=== PATIENT | female | born 1955 ===

== ENCOUNTER 2021-07-02 10:31 | Observation (INO) | payer MEDICARE, MEDICAID ==
[2021-07-02] VITALS (12 sets, daily range): BP systolic 117–144; BP diastolic 58–70; PULSE 51–63; TEMP 97.4–98.2
[~2021-07-02] VITALS: Ht 157.5 cm; Wt 86.0 kg
[2021-07-02] MEDS ORDERED: ARICEPT10 MG PO (12:09)
[2021-07-02] MEDS ORDERED: PROTONIX 40MG T40 MG PO (12:09)
[2021-07-02] MEDS ORDERED: NORVASC2.5 MG PO (12:11)
--- NOTE | 2021-07-02 12:35 | NUR ---
PATIENT LEFT THE FLOOR FOR GI SURGERY PROCEDURE.
--- NOTE | 2021-07-02 13:25 | NUR ---
PATIENT RETURNED FROM SURGICAL PROCEDURE, EGD. FOUND 2 LARGE ULCERS BUT BLEEDING HAD STOPPED AND NO SURGICAL INTERVENTION WAS NEEDED. RECOMMENDED TO STAY OFF NSAIDS AND REPEAT EGD IN 2 MONTHS. PATIENT RESTING IN ROOM, HOOKED UP TO VITAL MACHINE TO OBTAIN POST OP VITALS. ALERT AND ORIENTED, VS WNL.
[2021-07-02 15:59] LABS: BASO # 0.1 K/mm3 (0.0-0.2); BASO % 0.9 % (0.0-2.0); EOS # 0.3 K/mm3 (0.0-0.7); EOS % 4.2 % (0.0-4.0); GRAN # 3.8 K/mm3 (1.4-6.5); GRAN % 57.8 % (42.2-75.2); LYMPH % 29.4 % (20.0-51.0); MEAN CELL VOLUME 97 fl (80.0-100.0); MEAN CORPUSCULAR HGB CONC 32 g/dl (33.0-37.0); MEAN PLATELET VOLUME 9.5 fl (7.4-10.4); MONO # 0.5 K/mm3 (0.1-0.6); MONO % 7.4 % (1.7-9.3); PLATELET COUNT 224 K/mm3 (130-400); RED BLOOD COUNT 2.69 M/mm3 (4.10-5.30)
[2021-07-02 16:03] LABS: HEMATOCRIT 26.2 % (37.0-47.0); HEMOGLOBIN 8.4 g/dl (12.5-16.0); MEAN CORPUSCULAR HEMOGLOBIN 31 pg (27-31)
[2021-07-02 16:15] LABS: CALCIUM 8.3 mg/dL (8.4-10.2); CREATININE, serum 0.64 mg/dL (0.57-1.11); POTASSIUM 3.8 mmol/L (3.5-4.5)
--- NOTE | 2021-07-02 20:48 | NUR ---
Patient assessed around 2014. Alert and oriented x 4, and able to make needs known. Denies pain and discomfort. Peripheral INT to left AC and left hand. Denies SOB and dyspnea. LS CTA. HRR. BSAx4. Denies nausea, upset stomach. No BM this shift. Patient voices no questions, needs, or concerns at this time. In bed with call light within reach. High fall risk precautions in place. Dr. Mcconnell called at approximately 2039, and gave telephone order to change diet from clear liquids to general. Updated order.
[2021-07-02 22:30] LABS: HEMATOCRIT 26.6 % (37.0-47.0); HEMOGLOBIN 8.4 g/dl (12.5-16.0)
[2021-07-03 04:25] VITALS: BP 142/67; PULSE 66; TEMP 98.1
--- NOTE | 2021-07-03 05:31 | NUR ---
Patient has denied having pain this shift. No BM during the night. Voices no questions, needs, or concerns at this time. In bed with call light within reach.
[2021-07-03 06:08] LABS: HEMATOCRIT 26.9 % (37.0-47.0); HEMOGLOBIN 8.6 g/dl (12.5-16.0)
[2021-07-03 07:25] VITALS: BP 166/60; PULSE 56; TEMP 98.2
[2021-07-03] MEDS ORDERED: PROTONIX 40MG T40 MG PO (08:47)
[2021-07-03] MEDS ORDERED: CELEBREX 200MG200 MG PO (08:49)
[2021-07-03] MEDS ORDERED: NATURAL IRON65 MG PO (08:52)
--- NOTE | 2021-07-03 09:38 | NUR ---
PT DENIES PAIN OR NAUSEA THIS AM. HGB STABLE AT 8.6. VSS. PLAN TO DC BACK TO FACILITY LATER THIS SHIFT.
--- NOTE | 2021-07-03 10:30 | NUR ---
The patient has dementia. YUE contacted the patient's niece/DPOA-HC, Rose Green, to discuss discharge plan. The patient has been residing at [facility] for a skilled stay. The patient's PCP was Dr. Benavides, but Rose states that the patient has a new PCP that goes out to [facility] now. She could not recall their name. The patient's DPOA-HC is in her chart and it designates Rose. Rose states that the plan is for the patient to return back to [facility] to resume her skilled stay. They then plan to transition her into long-term care. The PA notified YUE that they are ready to discharge the patient today. SW notified and faxed updates and orders to [facility]. Florencia, at [place], states that they can picker the patient at 1300. The patient is to discharge today, 07/03, back to [facility] for a skilled stay. Transportation was scheduled at 1300, via [facility]. YUE informed the patient's RN and her niece, Rose, of the time. No additional needs at this time.
--- NOTE | 2021-07-03 11:28 | NUR ---
First visit from the cyber security. No needs right now.
[2021-07-03 11:46] VITALS: BP 130/66; PULSE 54; TEMP 98.1
--- NOTE | 2021-07-03 14:35 | NUR ---
PT MET DISCHARGE CRITERIA, D/C PAPER WORK SENT WITH TRANSPORTATION, PT TO RETURN TO NURSING FACILITY. IV REMOVED WITHOUT COMPLICATIONS, CATHETER INTACT
== END 2021-07-03 13:20 ==
LOC: SURG 10:31
PROVIDERS: ADMIT Internal Medicine
DX: K25.7 Chronic gastric ulcer without hemorrhage or perforation (principal); D50.0 Iron deficiency anemia secondary to blood loss (chronic); K92.1 Melena; R73.03 Prediabetes; I10 Essential (primary) hypertension; K21.9 Gastro-esophageal reflux disease without esophagitis; F03.90 Unspecified dementia, unspecified severity, without behavioral disturbance, psychotic disturbance, mood disturbance, and anxiety; Z79.899 Other long term (current) drug therapy; Z96.641 Presence of right artificial hip joint; Z79.82 Long term (current) use of aspirin
CPT/HCPCS: G0378; J2704